=== PATIENT | female | born 1960 | race Caucasian/White ===

== ENCOUNTER 2021-07-17 09:19 | Day surgery (SDC) | payer OTHER, BC ==
[2021-07-17 09:42] VITALS: BMI 35.9
[2021-07-17] MEDS ORDERED: BUPIVACAINE HCL 50 ML ONE (13:33)
[2021-07-17] MEDS ORDERED: PROPOFOL 20 ML ONE ×3 (13:35)
[2021-07-17] MEDS ORDERED: MIDAZOLAM HCL 2 MG/2 ML SINGLE DOSE VIAL ONE ×3 (13:36)
[2021-07-17] MEDS ORDERED: ePHEDrine SULFATE 50 MG/1 ML AMPULE ONE ×2 (13:51→14:48)
[2021-07-17] MEDS ORDERED: ONDANSETRON 4 MG/2 ML VIAL ONE (14:17)
[2021-07-17] MEDS ORDERED: KETOROLAC TROMETHAMINE 30 MG/1 ML VIAL ONE (14:17)
[2021-07-17] MEDS ORDERED: ceFAZolin SODIUM 1 GM VIAL ONE (14:17)
[2021-07-17] MEDS ORDERED: DEXAMETHASONE SOD PHOSPHATE 4 MG/1 ML VIAL ONE (14:17)
[2021-07-17] MEDS ORDERED: PHENYLEPHRINE HCL 10 MG/1 ML SINGLE DOSE VIAL ONE (14:23)
[2021-07-17] MEDS ORDERED: ONDANSETRON 4 MG/2 ML VIAL IVPUSH PRN (15:49)
[2021-07-17] MEDS: oxyCODONE HCL 5 MG TABLET PO PRN ×2 (19:18→21:23)
[2021-07-17] MEDS: GABAPENTIN 100 MG CAPSULE PO SCH (21:22)
[2021-07-17] MEDS: HYDROXYCHLOROQUINE SO4 200 MG TABLET (FP) PO SCH (21:23)
[2021-07-18] MEDS: oxyCODONE HCL 5 MG TABLET PO PRN ×3 (01:42→09:57)
[2021-07-18] MEDS: GABAPENTIN 100 MG CAPSULE PO SCH (09:49)
[2021-07-18] MEDS: HYDROXYCHLOROQUINE SO4 200 MG TABLET (FP) PO SCH (09:49)
[2021-07-18] MEDS ORDERED: ALLOPURINOL 300 MG TABLET (FP) PO SCH (10:00)
[2021-07-18 10:26] VITALS: BP 108/76; PULSE 81; TEMP 97.9
== END 2021-07-18 10:50 | disposition home or self-care (01) ==
LOC: SUATTDRO 09:19 → FASUSAT 09:19 → FM/S 16:39 → FASUSAT 07-18 10:50
PROVIDERS: ATTEND Nurse Practitioner Acute Care
PROC: 0QQ60ZZ Repair Right Upper Femur, Open Approach (ICD-10-PCS; principal; 2021-07-17 14:29)
DX: M87.851 Other osteonecrosis, right femur (principal)
CPT/HCPCS: 76000-TC-FY; 94760; 97116-GP; 97162-GP